=== PATIENT | male | born 1995 | race Caucasian/White ===

== ENCOUNTER 2019-11-26 19:57 | Emergency (ER) | payer SELFPAY ==
[~2019-11-26] VITALS: Ht 172.7 cm; Wt 68.2 kg
[2019-11-26] MEDS ORDERED: DiphenhydrAMINE HCL 50 MG/ML VIAL IVP ONE (21:00)
[2019-11-26] MEDS ORDERED: HYDROmorphone 2 MG/ML SYRINGE IVP ONE (21:00)
[2019-11-26] MEDS ORDERED: ETOMIDATE 2 MG/ML 10 ML VIAL IVP ONE (21:45)
[2019-11-26] MEDS ORDERED: OXYGEN THERAPY IH SCH (21:45)
[2019-11-26 22:45] VITALS: BP 139/83
== END 2019-11-26 22:58 | disposition home or self-care (01) ==
LOC: EMS 19:58
DX: S03.01XA Dislocation of jaw, right side, initial encounter (principal); F12.90 Cannabis use, unspecified, uncomplicated; Z88.5 Allergy status to narcotic agent; Z88.8 Allergy status to other drugs, medicaments and biological substances; W01.198A Fall on same level from slipping, tripping and stumbling with subsequent striking against other object, initial encounter; Y93.89 Activity, other specified; Y92.89 Other specified places as the place of occurrence of the external cause; Y99.8 Other external cause status
CPT/HCPCS: 21480; 70450; 70486; 96374; 96375; 99285; J1170; J1200; J3490